=== PATIENT | male | born 1945 | race Caucasian/White ===

== ENCOUNTER 2018-08-01 22:09 | Emergency (ER) | payer MEDICARE, OTHER ==
[~2018-08-01] VITALS: Ht 177.8 cm; Wt 86.9 kg
[~2018-08-01 22:09] MED LIST: ASPIRIN PO; BUPROPION PO; CAPTOPRIL PO; CEPH500C PO; CODE5LIQ2 PO; IPRA4AER INHALATION; IRON PO; LEVO500T10 PO; LIPITOR PO; METOPROLOL PO; PLAVIX PO; PRED10TA PO; RANITIDINE PO; SEROQUEL PO; TIOT18CA INH
[2018-08-01 22:14] VITALS: Ht 177.8 cm; Wt 86.9 kg
[2018-08-02] MEDS ORDERED: SOD CHLORIDE 0.9% 500 ML IV STA (00:20)
[2018-08-02] MEDS ORDERED: METHYLPREDNISOLONE 125 MG INJ IV STA (00:20)
[2018-08-02] MEDS ORDERED: ALBUTEROL 0.5% (NEB) 2.5 MG/0.5 ML AMP INH STA ×2 (00:20→02:30)
[2018-08-02] MEDS ORDERED: IPRATROPIUM (NEB) 0.5 MG/2.5 ML AMP INH STA (00:20)
[2018-08-02 04:00] VITALS: BP 142/85; PULSE 79; RESP 22
[2018-08-02] MEDS ORDERED: PRED20TA PO (04:05)
[2018-08-02] MEDS ORDERED: AZIT250T PO (04:05)
[2018-08-02] MEDS ORDERED: ALBU18HF INHALATION (04:05)
[2018-08-02] MEDS ORDERED: ADV25050 INHALATION (04:05)
--- NOTE | 2018-08-02 04:12 | ERD ---
ER Documentation Chief Complaint Chief Complaint sob x 2 months, worse today. hx of copd HPI This 73-year-old male comes in with shortness of breath for the past 6 weeks has been getting worse over the past 2 days. According to the family counted patient has been complaining by shortness of breath and seen his doctor has been diagnosed with emphysema. He is only on pro-air at home. No fevers no chills. Cough is mildly productive. He said that shortness of breath progressively worse over the past 3 days. No nausea no vomiting no fevers no chills. No other current complaints. ROS All systems reviewed and are negative except as per history of present illness. Medications Home Meds Active Scripts Azithromycin* (Zithromax*) 250 Mg Tablet, 250 MG PO .ZPACK DIRECTED, #6 TAB TAKE 500 MG (2 TABS) THE FIRST DAY THEN 250 MG (1 TAB) DAYS 2-5 Prov:KOREY MAGANA 08/02/18 Albuterol Sulfate* (Ventolin HFA*) 18 Gm Hfa.aer.ad, 2 PUFF INHALATION Q4H, #1 INHALER Prov:KOREY MAGANA 08/02/18 Salmeterol Xinaf/Fluticasone* (Advair*) 250-50 Diskus Inhaler, 1 INH INHALATION BID, #1 INHALER Prov:KOREY MAGANA 08/02/18 Prednisone* (Prednisone*) 20 Mg Tab, 40 MG PO DAILY for 4 Days, TAB Prov:KOREY MAGANA 08/02/18 Tiotropium [place]* (Spiriva*) 18 Mcg Cap.w.dev, 1 INH INH DAILY, #30 Prov:SCOTT SARAH MD 06/13/16 Albuterol/Ipratropium* (Combivent Respimat*) 20-100 Mcg/Inh - 4 Gm Aer.w.adap, 1 PUFF INHALATION QID, #1 INHALER Prov:SCOTT SARAH MD 06/13/16 Reported Medications [Iron] No Conflict Check, PO DAILY 01/20/12 [Lipitor] No Conflict Check, PO DAILY 01/20/12 [Seroquel] No Conflict Check, PO DAILY 01/20/12 [Ranitidine] No Conflict Check, PO DAILY 01/20/12 [Aspirin] 81 TAB No Conflict Check, CAP PO DAILY 01/20/12 [Plavix] No Conflict Check, PO DAILY 01/20/12 [Captopril] No Conflict Check, PO DAILY 01/20/12 [Metoprolol] No Conflict Check, PO BID 01/20/12 [Bupropion] No Conflict Check, PO HS 01/20/12 Discontinued Scripts Cephalexin* (Cephalexin*) 500 Mg Capsule, 500 MG PO BID, #14 CAP Prov:SCOTT SARAH MD 06/13/16 Levofloxacin* (Levofloxacin*) 500 Mg Tablet, 500 MG PO DAILY, #7 TAB Prov:SCOTT SARAH MD 06/13/16 Prednisone* (Prednisone*) 10 Mg Tab, 10 MG PO BID, #14 TAB Prov:SCOTT SARAH MD 06/13/16 Guaifenesin-Codeine Phosphate* (Robitussin* AC) 5 Ml Syrup, 5 ML PO Q4H PRN for COUGH, #100 Prov:SCOTT SARAH MD 06/13/16 Allergies Allergies: Coded Allergies: No Known Drug Allergies (Unverified Allergy, Unknown, 08/02/18) PMhx/Soc History of Surgery: No Anesthesia Reaction: No Hx Neurological Disorder: No Hx Respiratory Disorders: Yes (ASTMA) Hx Cardiac Disorders: Yes (CT s/p stent) Hx Psychiatric Problems: Yes (Depression) Hx Miscellaneous Medical Probl: Yes (depression, HTN, GERD, dyslipidemia) Hx Alcohol Use: No Hx Substance Use: No Hx Tobacco Use: Yes (10 yrs ago) Smoking Status: Current every day smoker Physical Exam Vitals Vital Signs Date Temp Pulse Resp B/P (MAP) Pulse Ox O2 O2 Flow FiO2 Time Delivery Rate 08/02/18 65 99 40 03:37 08/02/18 68 98 40 01:59 08/02/18 69 100 50 01:10 08/02/18 74 22 100 Simple 6.0 00:35 Mask 08/02/18 98.7 69 27 193/95 99 Mask 8.0 00:35 (127) 08/02/18 Vapotherm 8 00:35 08/02/18 Vapotherm 8.0 00:35 08/01/18 98.1 73 18 144/91 95 22:14 (108) Physical Exam Const: No acute distress Head: Atraumatic Eyes: Normal Conjunctiva ENT: Normal External Ears, Nose and Mouth. Neck: Full range of motion. No meningismus. Resp: Scattered wheezing bilaterally Cardio: Regular rate and rhythm, no murmurs Abd: Soft, non tender, non distended. Normal bowel sounds Skin: No petechiae or rashes Back: No midline or flank tenderness Ext: No cyanosis, or edema Neur: Awake and alert Psych: Normal Mood and Affect Result Diagram: 08/02/18 0044 08/02/184 Results 24 hrs Laboratory Tests Test 08/02/18 00:44 White Blood Count 12.6 10^3/ul Red Blood Count 5.77 10^6/ul Hemoglobin 16.9 g/dl Hematocrit 49.9 % Mean Corpuscular Volume 86.5 fl Mean Corpuscular Hemoglobin 29.3 pg Mean Corpuscular Hemoglobin Concent 33.9 g/dl Red Cell Distribution Width 12.4 % Platelet Count 265 10^3/UL Mean Platelet Volume 8.6 fl Immature Granulocytes % 0.600 % Neutrophils % 63.9 % Lymphocytes % 20.5 % Monocytes % 6.2 % Eosinophils % 8.3 % Basophils % 0.5 % Nucleated Red Blood Cells % 0.0 /100WBC Immature Granulocytes # 0.070 10^3/ul Neutrophils # 8.0 10^3/ul Lymphocytes # 2.6 10^3/ul Monocytes # 0.8 10^3/ul Eosinophils # 1.0 10^3/ul Basophils # 0.1 10^3/ul Nucleated Red Blood Cells # 0.0 10^3/ul Sodium Level 139 mmol/L Potassium Level 4.3 mmol/L Chloride Level 100 mmol/L Carbon Dioxide Level 32 mmol/L Anion Gap 7 Blood Urea Nitrogen 14 mg/dl Creatinine 1.31 mg/dl Est Glomerular Filtrat Rate mL/min mL/min Glucose Level 113 mg/dl Calcium Level 9.6 mg/dl Troponin I < 0.012 ng/ml Current Medications Medications Dose Sig/Presley Start Time Status Last (Trade) Ordered Route PRN Stop Time Admin Dose Reason Admin Sodium 500 ml @ Q1H STAT 08/02/18 DC 08/02/18 Chloride 500 mls/hr IV 00:20 00:47 08/02/18 01:19 Albuterol 10 mg ONCE STAT 08/02/18 DC 08/02/18 (Proventil INH 00:20 00:32 0.5% (Neb)) 08/02/18 00:22 Ipratropium 1 mg ONCE STAT 08/02/18 DC 08/02/18 [place] INH 00:20 00:32 (Atrovent 08/02/18 00:22 0.02% (Neb)) 125 mg ONCE STAT 08/02/18 DC 08/02/18 Methylprednis IV 00:20 00:41 olone Sodium 08/02/18 00:22 Succinate (Solu-Medrol) Albuterol 10 mg ONCE STAT 08/02/18 DC 08/02/18 (Proventil INH 02:30 02:35 0.5% (Neb)) 08/02/18 02:31 Procedures/MDM Chest X-ray 1V Interpreted by me: Soft Tissue: No acute abnormalities Bones: No acute abnormalities Mediastinum/Cardiac Silhouette/Lungs: [No acute abnormalities] Medical decision make: 73-year-old male who has essentially acute COPD flare. At this point clinically stable. Patient was on a trial of BiPAP with in-line albuterol therapy. He has been taken off BiPAP and observed for close to normal with no desaturations. At this point is clinically stable for outpatient management and is on azithromycin, prednisone, Ventolin Departure Diagnosis: Primary Impression: Shortness of breath Condition: Stable Patient Instructions: Copd Flare KOREY MAGANA Aug 02, 2018 04:12
== END 2018-08-02 06:25 | disposition home or self-care (01) ==
LOC: E/R 22:09
DX: J45.901 Unspecified asthma with (acute) exacerbation (principal); J44.9 Chronic obstructive pulmonary disease, unspecified; I10 Essential (primary) hypertension; I25.2 Old myocardial infarction; F17.210 Nicotine dependence, cigarettes, uncomplicated; Z98.61 Coronary angioplasty status; Z79.82 Long term (current) use of aspirin
CPT/HCPCS: 71045; 80048; 84484; 85025; 87400; 93005; 94644; 94645; 94660; 96361; 96374; 99285; J2930; J7040